=== PATIENT | female | born 1995 | race Caucasian/White ===

== ENCOUNTER 2017-01-19 08:00 | Emergency (ER) | payer MEDICAID, OTHER ==
[~2017-01-19] VITALS: Ht 149.9 cm; Wt 40.8 kg
[2017-01-19] MEDS ORDERED: LIDOCAINE 1% HCL (LOCAL ANESTH.) INJ 20ML MDV IN ONE (08:15)
[2017-01-19] MEDS ORDERED: TETANUS-DIPTH-ACEL PERTUSSIS 0.5ML SYRG IM ONE ×2 (08:30→08:45)
[2017-01-19 08:36] VITALS: BP 133/96
== END 2017-01-19 08:57 | disposition home or self-care (01) ==
LOC: ER 08:00
DX: S41.111A Laceration without foreign body of right upper arm, initial encounter (principal); S41.031A Puncture wound without foreign body of right shoulder, initial encounter; S11.93XA Puncture wound without foreign body of unspecified part of neck, initial encounter; Z23 Encounter for immunization; V43.52XA Car driver injured in collision with other type car in traffic accident, initial encounter; Y93.89 Activity, other specified; Y99.8 Other external cause status; Y92.89 Other specified places as the place of occurrence of the external cause
CPT/HCPCS: 12002; 90471; 90715; 99283; J2001